=== PATIENT | male | born 1960 | race Caucasian/White ===

== ENCOUNTER 2020-02-22 06:18 | Inpatient (IN) | payer OTHER ==
[~2020-02-22] VITALS: Ht 190.5 cm; Wt 117.9 kg
[2020-02-22 06:23] VITALS: BP 144/96
[2020-02-22] MEDS ORDERED: BENTYL 10 MG CA10 MG PO (06:32)
[2020-02-22] MEDS ORDERED: LIPITOR40 MG PO (06:33)
[2020-02-22] MEDS ORDERED: NORVASC 2.5 MG2.5 M1 PO (06:33)
[2020-02-22] MEDS ORDERED: HYDROCHLOROTHIA25 M2 PO (06:34)
[2020-02-22 06:55] LABS: ABSOLUTE BASOPHILS 0.1 thou/uL (0.0-0.2); ABSOLUTE EOSINOPHILS 0.3 thou/uL (0.0-0.7); ABSOLUTE LYMPHOCYTES 1.1 thou/uL (0.8-5.3); ABSOLUTE MONOCYTES 0.8 thou/uL (0.0-1.2); BASOPHILS 0.6 %; EOSINOPHILS 3.1 %; HEMOGLOBIN 14.1 gm/dL (14.0-18.0); LYMPHOCYTES 12.3 %; MCH 29.9 pg (26.0-34.0); MCHC 35.2 g/dL (28.0-37.0); MONOCYTES 8.5 %; MPV 6.4 fl. (7.2-11.1); NUCLEATED RBCS 0 /100WBC; PLATELET COUNT* 335 thou/uL (150-400); POLYS 75.5 %; RBC 4.71 mil/uL (4.50-6.00); RDW-CV 14.6 % (10.5-14.5); WBC 9.2 thou/uL (4.0-11.0)
[2020-02-22 06:58] LABS: URINE BILIRUBIN NEGATIVE (Negative); URINE BLOOD NEGATIVE (Negative); URINE CLARITY CLEAR; URINE COLOR YELLOW; URINE GLUCOSE-RANDOM NEGATIVE (Negative); URINE KETONES NEGATIVE (Negative); URINE LEUKOCYTES-REFLEX NEGATIVE (Negative); URINE NITRITE-REFLEX NEGATIVE (Negative); URINE PROTEIN TRACE (Negative); URINE SPECIFIC GRAVITY 1.025 (1.005-1.030); URINE UROBILINOGEN 0.2 E.U./dl (0.2-1.0)
[2020-02-22 07:04] LABS: CALCIUM 8.4 mg/dL (8.5-10.1); CREATININE 1.1 mg/dL (0.6-1.3); POTASSIUM 3.7 mmol/L (3.5-5.1)
[2020-02-22 07:16] LABS: TOTAL PROTEIN 8.5 g/dL (6.4-8.2)
[2020-02-22 10:18] LABS: MAGNESIUM 2.2 mg/dL (1.8-2.4); POTASSIUM 3.7 mmol/L (3.5-5.1)
[2020-02-22 13:20] VITALS: BP 166/60
[2020-02-22 15:13] VITALS: BP 131/82
[2020-02-22 15:55] VITALS: BP 131/79
[2020-02-22] MEDS ORDERED: COQ-10100 MG PO (15:57)
--- NOTE | 2020-02-22 16:14 | EKG ---
[place] [address] ELECTROCARDIOGRAM REPORT Name: RADHADAVID WORTHINGTON Room: [address] ADM IN M.R.#: [id number] Admission: 02/22/20 Attend Phys: Nakul Feliciano Discharge: Date of : 58 Date of Service: 02/22/20 0657 Report #: [id number] THIS REPORT FOR: //name// [facility] ED Test Date: 2020-02-22 Test Time: 06:57:21 Pat Name: DAVID GARCIA Department: Room: [facility] Gender: M Refuse Laborer: MR : 1960 Requested By: Vilma Devlin Order Number: [id number] MD: Paxton Gomez Measurements Intervals [place] Rate: 77 P: 68 MI: 167 QRS: 0 QRSD: 107 T: 28 QT: 380 QTc: 431 Interpretive Statements Sinus rhythm Probable left atrial enlargement Low voltage, precordial leads No previous ECG available for comparison Electronically Signed On 02-22-2020 16:14:13 CDT by Paxton Gomez [email or web address] <ELECTRONICALLY SIGNED> By: Paxton Gomez MD, [facility] 02/22/20 1614 0657 [id number] Paxton Gomez MD, [facility] /EPI
[2020-02-22 19:30] VITALS: BP 132/81; BP 142/90
--- NOTE | 2020-02-23 07:29 | NUR ---
PT HAD RESTLESS NIGHT SLEEPING IN CHAIR OFF AND ON. PAIN CONTROLLED ONLY FOR A SHORT TIME WITH FENTANYL. FLUIDS AND ANTIBIOTICS INFUSING PER ORDER. PT HAS AMBULATED TO TOILET WITHOUT DIFFICULTY. TM
[2020-02-23 07:45] VITALS: BP 124/63
--- NOTE | 2020-02-23 09:50 | NUR ---
Pt is A&O. Resides at home alone. Independent. No DME. No hx of HH or SNF. Goal is home at nm. No needs anticipated.
--- NOTE | 2020-02-23 16:34 | NUR ---
PATIENT UP IN CHAIR THIS SHIFT AND AMBULATING AD SACHA. IVF AND SCHED ABX INFUSING ORDERED. PRN FENTANYL GIVEN FOR PAIN, GOOD RELIEF NOTED. DR. DENNIS FROM SURGERY CALLED THIS AFTERNOON AND OK FOR PATIENT TO HAVE CLEAR LIQUID DIET, WILL SEE PATIENT THIS EVENING. PATIENT TOLERATING CLEARS AT THIS TIME. PATIENT MOTHER AT BEDSIDE. ABD XRAY DONE THIS AFTERNOON PER ORDERS, DR. MERCHANT NOTIFIED OF RESULTS.
[2020-02-23 19:36] VITALS: BP 149/79
[2020-02-24 07:50] VITALS: BP 171/87
[2020-02-24 16:00] VITALS: BP 138/77
[2020-02-24 16:03] LABS: HEMATOCRIT 35.6 % (42.0-52.0); HEMOGLOBIN 12.3 gm/dL (14.0-18.0); MCH 29.4 pg (26.0-34.0); MCHC 34.4 g/dL (28.0-37.0); MCV 85.4 fL (80.0-100.0); MPV 6.1 fl. (7.2-11.1); RBC 4.17 mil/uL (4.50-6.00); RDW-CV 14.1 % (10.5-14.5); WBC 6.4 thou/uL (4.0-11.0)
--- NOTE | 2020-02-24 18:57 | NUR ---
PT A&OX4 VSS. PT UP AD SACHA, GAIT STEADY. PT RESTS IN RECLINER MUCH OF SHIFT FOR COMFORT. PT DIET REMAINS CLEAR LIQUIDS, PT TOLERATES W/O COMPLAINT OF N/V. IV TO LAC PATENT, DRESSING C/D/I. PT REQUESTED SOMETHING "LESS STRONG" THAN FENTANYL THIS EVENING, TYLENOL ADMINISTERED. PT RESTS IN ROOM WITH CALLIGHT IN REACH, WILL CONTINUE TO MONITOR. POSSIBLE DC TO HOME TOMORROW.
[2020-02-24 20:00] VITALS: BP 121/68
[2020-02-25] MEDS ORDERED: AUGMENTIN 875-1 EACH PO (08:10)
[2020-02-25] MEDS ORDERED: ONDANSETRON HCL4 M2 PO (08:10)
[2020-02-25] MEDS ORDERED: NORCO 5-325 TA1 EAC2 PO (08:11)
[2020-02-25 09:47] LABS: HEMATOCRIT 35.2 % (42.0-52.0); HEMOGLOBIN 12.3 gm/dL (14.0-18.0); MCH 29.7 pg (26.0-34.0); MCHC 34.8 g/dL (28.0-37.0); MCV 85.3 fL (80.0-100.0); MPV 6.4 fl. (7.2-11.1); RBC 4.12 mil/uL (4.50-6.00); RDW-CV 14.2 % (10.5-14.5); WBC 5.4 thou/uL (4.0-11.0)
[2020-02-25 09:53] LABS: CALCIUM 8.9 mg/dL (8.5-10.1); MAGNESIUM 2.1 mg/dL (1.8-2.4); POTASSIUM 3.4 mmol/L (3.5-5.1); TOTAL PROTEIN 7.5 g/dL (6.4-8.2)
[2020-02-25 14:53] VITALS: BP 143/82
[2020-02-25 16:00] VITALS: BP 143/82
--- NOTE | 2020-02-25 16:00 | NUR ---
PT A&OX4 VSS. PT AMB UNASSISTED, GAIT STEADY. PT DIET ADVANCED TO REGULAR AND PT TOLERATED W/O COMPLAINT OF N/V. PT STATES UNDERSTANDING OF DC INSTRUCTIONS AND RX INFORMATION. PT MET WITH DR DENNIS PRIOR TO DC FROM UNIT. PT LEFT UNIT WITH ALL PERSONAL BELONGINGS.
== END 2020-02-25 16:00 | disposition home or self-care (01) | DRG 392 ==
LOC: M.ERS 06:18 → M.TBA-ER 09:10 → M.3W 09:10
PROVIDERS: Internal Medicine; Personal Emergency Response Attendant; Surgery; ADMIT Internal Medicine; ATTEND Internal Medicine
DX: K57.20 Diverticulitis of large intestine with perforation and abscess without bleeding (principal); E87.1 Hypo-osmolality and hyponatremia; I10 Essential (primary) hypertension; F17.290 Nicotine dependence, other tobacco product, uncomplicated; E66.9 Obesity, unspecified; Z20.828 Contact with and (suspected) exposure to other viral communicable diseases; Z68.32 Body mass index [BMI] 32.0-32.9, adult; Z79.899 Other long term (current) drug therapy